=== PATIENT | male | born 1965 | race Caucasian/White ===

== ENCOUNTER → 2016-09-29 | Outpatient (CLI) | payer OTHER ==
[2016-09-29 12:17] LABS: BASO % 0.5 %; BASO ABS # 0.02 K/uL (0-0.2); COMPLETE YES; EOS % 1.7 %; HEMATOCRIT 45.3 % (42-52); IG% 0.2 %; LYMPH % 32.8 %; LYMPH ABS # 1.37 K/uL (1.2-3.4); MEAN CELL VOLUME 92.3 fL (80-100); MEAN CORPUSCULAR HEMOGLOBIN 31.8 pg (25-34); MEAN CORPUSCULAR HGB CONC 34.4 g/dl (32-36); MONO % 9.8 %; PLATELET COUNT 162 K/uL (130-400); RED BLOOD COUNT 4.91 M/uL (4.7-6.1); WHITE BLOOD COUNT 4.18 K/uL (4.8-10.8)
[2016-09-29 12:40] LABS: ALT/SGPT 34 U/L (12-78); BLOOD UREA NITROGEN 17 mg/dl (7-18); BUN/CREATININE RATIO 23.2 (10-20); CARBON DIOXIDE 27 mmol/L (21-32); CHLORIDE 105 mmol/L (98-107); CHOLESTEROL 166 mg/dl (0-200); CREATININE 0.75 mg/dl (0.60-1.40); GLUCOSE 106 mg/dl (70-99); POTASSIUM 4.8 mmol/L (3.5-5.1); SODIUM 138 mmol/L (136-145); TRIGLYCERIDES 66 mg/dl (0-150); VERY LOW DENSITY LIPOPROT CALC 13 mg/dl
[2016-09-29 12:49] LABS: ALB/GLOB RATIO 1.3 (0.9-2); ALKALINE PHOSPHATASE 88 U/L (45-117); AST/SGOT 15 U/L (15-37); CHOLESTEROL/HDL RATIO 2.9; HDL CHOLESTEROL 58 mg/dl; LDL CHOLESTEROL CALCULATED 95 mg/dl
== END | disposition home or self-care (01) ==
LOC: C.LABBFT 09:52
PROVIDERS: ATTEND Internal Medicine
DX: R42 Dizziness and giddiness (principal); R63.4 Abnormal weight loss; R56.9 Unspecified convulsions

== ENCOUNTER → 2016-09-30 | Outpatient (CLI) | payer OTHER ==
[2016-09-30 13:38] LABS: URINE APPEARANCE TURBID (CLEAR); URINE BILIRUBIN NEG (NEG); URINE COLOR YELLOW; URINE EPITHELIAL CELL AUTO 0-5 /lpf (0-5); URINE NITRITE NEG (NEG); URINE SPECIFIC GRAVITY 1.022 (1.000-1.030); UROBILINOGEN NEG (NEG); ZZUR CULT IF INDIC CLEAN CATCH NO
[2016-09-30 13:42] LABS: MANUAL MICROSCOPIC REQUIRED? NO; REVIEW REQ? NO
== END | disposition home or self-care (01) ==
LOC: C.LABSPEC 13:00
PROVIDERS: ATTEND Internal Medicine
DX: R42 Dizziness and giddiness (principal); R63.4 Abnormal weight loss; R56.9 Unspecified convulsions

== ENCOUNTER → 2016-10-14 | Outpatient (CLI) | payer OTHER | END | disposition home or self-care (01) | LOC: C.LABBFT 09:49 | PROVIDERS: ATTEND Internal Medicine | DX: R56.9 Unspecified convulsions (principal) ==

== ENCOUNTER → 2017-10-27 | Outpatient (CLI) | payer OTHER ==
[2017-10-27 18:02] LABS: BASO % 0.6 %; BASO ABS # 0.03 K/uL (0-0.2); EOS % 0.8 %; EOS ABS # 0.04 K/uL (0-0.5); HEMATOCRIT 44.9 % (42-52); HEMOGLOBIN 15.4 g/dL (14.0-18.0); IG# 0.01 K/uL (0.00-0.02); LYMPH % 29.7 %; LYMPH ABS # 1.43 K/uL (1.2-3.4); MEAN CELL VOLUME 95.1 fL (80-100); MEAN CORPUSCULAR HEMOGLOBIN 32.6 pg (25-34); MEAN CORPUSCULAR HGB CONC 34.3 g/dl (32-36); MEAN PLATELET VOLUME 10.6 fL (7.4-10.4); MONO % 7.9 %; MONO ABS # 0.38 K/uL (0.11-0.59); NEUT % 60.8 %; NEUT ABS # 2.93 K/uL (1.4-6.5); PLATELET COUNT 145 K/uL (130-400); RED CELL DISTRIBUTION WIDTH CV 12.7 % (11.5-14.5); RED CELL DISTRIBUTION WIDTH SD 44.1 fL (36.4-46.3); WHITE BLOOD COUNT 4.82 K/uL (4.8-10.8)
[2017-10-27 18:19] LABS: ALBUMIN 3.9 gm/dl (3.4-5.0); ALT/SGPT 27 U/L (12-78); AST/SGOT 11 U/L (15-37); BLOOD UREA NITROGEN 20 mg/dl (7-18); CALCIUM 8.8 mg/dl (8.5-10.1); CARBON DIOXIDE 27 mmol/L (21-32); GLUCOSE 82 mg/dl (70-99); POTASSIUM 4.3 mmol/L (3.5-5.1); SODIUM 137 mmol/L (136-145)
[2017-10-27 18:25] LABS: ALKALINE PHOSPHATASE 81 U/L (45-117); CHOLESTEROL 172 mg/dl (0-200); LDL CHOLESTEROL CALCULATED 96 mg/dl; TOTAL PROTEIN 7.4 gm/dl (6.4-8.2)
[2017-10-28 05:59] LABS: HEMOGLOBIN A1C 5.2 % (4.5-5.6)
[2017-10-29 12:57] LABS: ANA SCREEN TC 249X NEGATIVE (NEGATIVE)
== END | disposition home or self-care (01) ==
LOC: C.LABBFT 15:06
PROVIDERS: ATTEND Physician Assistant Medical
DX: Z00.00 Encounter for general adult medical examination without abnormal findings (principal); R73.9 Hyperglycemia, unspecified; M79.643 Pain in unspecified hand

== ENCOUNTER 2017-12-25 23:15 | Emergency (ER) | payer OTHER ==
[~2017-12-25] VITALS: Ht 177.8 cm; Wt 131.4 kg
[2017-12-25 23:15] VITALS: TEMP 37.7; Ht 177.8 cm; Wt 131.4 kg
[2017-12-25 23:50] LABS: BASO % 0.1 %; BASO ABS # 0.01 K/uL (0-0.2); EOS % 1.3 %; EOS ABS # 0.13 K/uL (0-0.5); HEMATOCRIT 44.5 % (42-52); HEMOGLOBIN 15.7 g/dL (14.0-18.0); IG# 0.02 K/uL (0.00-0.02); LYMPH % 13.3 %; MEAN CELL VOLUME 94.9 fL (80-100); MEAN CORPUSCULAR HEMOGLOBIN 33.5 pg (25-34); MEAN CORPUSCULAR HGB CONC 35.3 g/dl (32-36); MEAN PLATELET VOLUME 11.5 fL (7.4-10.4); MONO % 7.8 %; MONO ABS # 0.76 K/uL (0.11-0.59); NEUT % 77.3 %; NEUT ABS # 7.54 K/uL (1.4-6.5); PLATELET COUNT 149 K/uL (130-400); RED CELL DISTRIBUTION WIDTH SD 44.7 fL (36.4-46.3); WHITE BLOOD COUNT 9.76 K/uL (4.8-10.8)
[2017-12-26 00:02] LABS: PTT PATIENT 21.5 SECONDS (21.0-31.0)
--- NOTE | 2017-12-26 00:07 | EMERGENCY ROOM VISIT NOTE ---
History Report prepared by Marva: Cindy Noland Under the Supervision of: Dr. Mary Jo Esparza D.O. First contact with patient: 23:23 Chief Complaint: OTHER COMPLAINT Stated Complaint: SYNCOPE History of Present Illness The patient is a 52 year old male who presents to the Emergency Room with complaints of an episode of seizure occurring 2.5 hours ago. The patient states that he has a history of seizures, but hasn't had one in a while. He reports that he takes Dilantin and has not missed a dose. The patient states that he started having abdominal pain and nausea this evening so he took his nightly medication and was going to bed. He states that after lying down he felt like he had to use the restroom. He reports that when he did he had an episode of diarrhea. The patient's girlfriend reports that at this time she witnessed him have a seizure. She reports that she leaned him against the side of the wall so he didn't fall over. She states that she told her daughter at this time to call 911. She reports that after a little he started talking to her, but it wasn't coherent. She states that after some time he was able to talk to her and he stood up. The girlfriend reports that he started to shake again. She reports that she got him back down to where he was. She reports that he didn't start coming out of it until EMS arrived. She reports that he was very diaphoretic at this time. The patient states that he remembers EMS coming into the bathroom and [place] remembers getting put in the ambulance. He states that he remembers being in the ambulance. He notes that he has been under more stress today because his girlfriend's mother this morning and he has been worried about her. He states that he only ate 2 pieces of pizza today because he just didn't feel like eating. The patient denies current abdominal pain, current nausea, falling, hitting his head, and seeing a neurologist. Source of History: patient, spouse/significant other Onset: 2.5 hours ago Position: other (global) Quality: other (seizure) Timing: other (episode) Associated Symptoms: + diaphoresis, + diarrhea, No nausea, No abdominal pain Note: The patient complains of loss of appetite. Review of Systems See HPI for pertinent positives & negatives. A total of 10 systems reviewed and were otherwise negative. Past Medical & Surgical Medical Problems: (1) HTN (hypertension) (2) Hx of seizure disorder Family History Diabetes mellitus Gallbladder disease Social History Marital Status: in relationship Housing Status: lives with family Occupation Status: employed Current/Historical Medications Scheduled Lisinopril (Zestril), 10 MG PO DAILY Naproxen (Naprosyn), 500 MG PO BIDM [Phenytoin Ex 100MG], 400 MG PO QPM [Phenytoin Ex], 200 MG PO QAM Scheduled PRN Meloxicam (Mobic), 7.5 MG PO BID PRN for Pain Allergies Coded Allergies: Penicillins (Verified Allergy, Unknown, 11/01/09) Physical Exam Vital Signs Date Time Temp Pulse Resp B/P (MAP) Pulse Ox O2 Delivery O2 Flow Rate FiO2 12/26/17 02:19 76 18 109/69 94 12/26/17 01:00 70 18 107/66 94 Room Air 12/26/17 00:32 103 18 95/68 94 Room Air 12/26/17 00:32 95 Room Air 12/25/17 23:30 90 12/25/17 23:15 37.7 90 18 131/75 98 Room Air Physical Exam HEENT: Head - normocephalic and atraumatic Pupils are equal, round, and reactive to light. Extraocular eye muscles are intact, and sclera are anicteric. Nose - moist nasal mucosa without discharge. Mouth - moist buccal mucosa. Oropharynx is nonerythematous and there is no tonsillar exudate or edema noted. Neck: Supple; no JVD, nuchal rigidity, cervical lymphadenopathy. Heart: Regular rate and rhythm. There is a normal S1 and S2 with no murmurs, clicks, or gallops appreciated. Lungs: Clear to auscultation bilaterally with no wheezes, rales, or rhonchi. Abdomen: Soft, completely nontender, nondistended, with good bowel sounds. There are no palpable pulsatile masses or hepatosplenomegaly. There is no guarding, rigidity, or rebound noted. Extremities: No evidence of cyanosis, clubbing, or edema. There are easily palpable peripheral pulses. Skin: warm and dry with good turgor and no rashes. Medical Decision & Procedures ER Provider Diagnostic Interpretation: Radiology results as stated below per my review and the radiologist's interpretation: SINGLE VIEW CHEST CLINICAL HISTORY: Sepsis. FINDINGS: An AP, portable, upright chest radiograph is compared to study dated 01/05/2006. The examination is degraded by portable technique and apical lordotic positioning. The heart appears mildly enlarged. The pulmonary vasculature is noncongested. There is mild elevation of the right hemidiaphragm. No airspace consolidation or large pleural effusion is identified. No pneumothorax is seen. The bony thorax is grossly intact. IMPRESSION: Mild cardiac enlargement with no acute cardiopulmonary abnormality. Electronically signed by: Eliezer Alexander M.D. 12/26/2017 12:23 AM Dictated Date/Time: 12/26/2017 12:22 AM Laboratory Results 12/25/17 22:27 Red Blood Count 4.69, Mean Corpuscular Volume 94.9, Mean Corpuscular Hemoglobin 33.5, Mean Corpuscular Hemoglobin Concent 35.3, Mean Platelet Volume 11.5, Neutrophils (%) (Auto) 77.3, Lymphocytes (%) (Auto) 13.3, Monocytes (%) (Auto) 7.8, Eosinophils (%) (Auto) 1.3, Basophils (%) (Auto) 0.1, Neutrophils # (Auto) 7.54, Lymphocytes # (Auto) 1.30, Monocytes # (Auto) 0.76, Eosinophils # (Auto) 0.13, Basophils # (Auto) 0.01 12/25/17 22:27 Test 12/25/17 22:27 12/25/17 23:58 White Blood Count 9.76 K/uL (4.8-10.8) Red Blood Count 4.69 M/uL (4.7-6.1) Hemoglobin 15.7 g/dL (14.0-18.0) Hematocrit 44.5 % (42-52) Mean Corpuscular Volume 94.9 fL (80-100) Mean Corpuscular Hemoglobin 33.5 pg (25-34) Mean Corpuscular Hemoglobin Concent 35.3 g/dl (32-36) Platelet Count 149 K/uL (130-400) Mean Platelet Volume 11.5 fL (7.4-10.4) Neutrophils (%) (Auto) 77.3 % Lymphocytes (%) (Auto) 13.3 % Monocytes (%) (Auto) 7.8 % Eosinophils (%) (Auto) 1.3 % Basophils (%) (Auto) 0.1 % Neutrophils # (Auto) 7.54 K/uL (1.4-6.5) Lymphocytes # (Auto) 1.30 K/uL (1.2-3.4) Monocytes # (Auto) 0.76 K/uL (0.11-0.59) Eosinophils # (Auto) 0.13 K/uL (0-0.5) Basophils # (Auto) 0.01 K/uL (0-0.2) RDW Standard Deviation 44.7 fL (36.4-46.3) RDW Coefficient of Variation 13.0 % (11.5-14.5) Immature Granulocyte % (Auto) 0.2 % Immature Granulocyte # (Auto) 0.02 K/uL (0.00-0.02) Prothrombin Time 10.7 SECONDS (9.0-12.0) Prothromb Time International Ratio 1.0 (0.9-1.1) Activated Partial Thromboplast Time 21.5 SECONDS (21.0-31.0) Partial Thromboplastin Ratio 0.8 Anion Gap 10.0 mmol/L (3-11) Est Creatinine Clear Calc Drug Dose 98.4 ml/min Estimated GFR () 81.4 Estimated GFR (Non- 70.3 BUN/Creatinine Ratio 17.1 (10-20) Calcium Level 8.9 mg/dl (8.5-10.1) Total Bilirubin 0.7 mg/dl (0.2-1) Aspartate Amino Transf (AST/SGOT) 17 U/L (15-37) Alanine Aminotransferase (ALT/SGPT) 35 U/L (12-78) Alkaline Phosphatase 84 U/L (45-117) Total Protein 7.7 gm/dl (6.4-8.2) Albumin 4.2 gm/dl (3.4-5.0) Globulin 3.5 gm/dl (2.5-4.0) Albumin/Globulin Ratio 1.2 (0.9-2) Phenytoin (Dilantin) Level 4.8 mcg/mL (10-20) Bedside Lactic Acid Venous 2.07 mmol/L (0.90-1.70) Laboratory results per my review. Medications Administered Medications (Trade) Dose Ordered Sig/Farhat Route Start Time Stop Time Status Last Admin Dose Admin Lidocaine HCl (Viscous Lidocaine 2% Soln) 10 ml NOW STAT PO 12/26/17 00:12 12/26/17 00:13 DC 12/26/17 00:30 10 ML Al Hydroxide/Mg Hydroxide (Maalox Susp) 30 ml NOW STAT PO 12/26/17 00:12 12/26/17 00:13 DC 12/26/17 00:30 30 ML Sodium Chloride 1,000 ml @ 999 mls/hr Q1H1M STAT IV 12/26/17 00:35 12/26/17 01:35 DC 12/26/17 00:41 999 MLS/HR Phenytoin Sodium (Dilantin Er Cap) 400 mg NOW STAT PO 12/26/17 01:30 12/26/17 01:31 DC 12/26/17 01:36 400 MG Procedure 0012: Ordered Maalox Susp 30 ml PO, Lidocaine HCl 10 ml PO. 0035: Ordered NSS 1000 mlg @ 999 mls/hr IV. 0130: Ordered Dilantin Er Cap 400 mg PO. ECG Per My Interpretation Indication: syncope Rate (beats per minute): 83 Rhythm: normal sinus Findings: no acute ischemic change, no ectopy ED Course 2331: Past medical records reviewed. The patient was evaluated in room A3. A complete history and physical exam was performed. Seizure precautions were taken. Laboratory studies were drawn as above. 0012: The patient complained of epigastric pain and GERD-like symptoms. I ordered Maalox Susp 30 ml PO, Lidocaine HCl 10 ml PO. 0035: Ordered NSS 1000 mlg @ 999 mls/hr IV. 0117: Upon reevaluation, the patient is resting comfortably. I had a long discussion with him and his girlfriend, The patient may have missed some of his doses. He will get Dilantin and head home. I discussed findings and results with him. He verbalized agreement of the treatment plan. The patient was discharged home. Appropriate Department of Transportation form was completed. 0130: Ordered Dilantin Er Cap 400 mg PO. Medical Decision The patient is a 52 year old male who presents to the Emergency Room with complaints of an episode of seizure occurring 2.5 hours ago. Differential diagnoses include diarrheal illness, seizure, syncope. LABS: Dilantin 4.8 Lactic 2.0 BUN 20 Creatine 1.1 Glucose 149 Normal LFTs Normal coags Normal white count Stable H&H This is a 52-year-old male patient who presents to the emergency department after a tonic-clonic seizure at home. This was witnessed by his girlfriend. He did have some diarrhea prior to this episode. He did not fall or injure himself in any way. He was confused upon EMS arrival. The patient has a low Dilantin level at this time. I discussed this with the pharmacist and we decided to load the patient with 400 mg of Dilantin every 3 hours for a total of 3 doses. I have asked that the patient not be alone over the next 48 hours in case he were to have another seizure. He will need to return to the emergency department. Medication Reconcilliation Current Medication List: was personally reviewed by me Blood Pressure Screening Patient's blood pressure: Normal blood pressure Blood pressure disposition: Did not require urgent referral Impression Primary Impression: Seizure Additional Impression: Seizure secondary to subtherapeutic anticonvulsant medication Scribe Attestation The scribe's documentation has been prepared under my direction and personally reviewed by me in its entirety. I confirm that the note above accurately reflects all work, treatment, procedures, and medical decision making performed by me. Departure Information Dispostion Home / Self-Care Referrals Gokul Newberry M.D. (PCP) Forms HOME CARE DOCUMENTATION FORM, IMPORTANT VISIT INFORMATION, WORK / SCHOOL INSTRUCTIONS Patient Instructions My [facility] [place] [employer] Additional Instructions Take dilantin - 400mg at 5am and another 400mg at 8am. You may take your usual night-time dose on Wednesday. You Cannot drive until released by PCP. Please call back to the ER with Grounds Maintenance Supervisor' s license number - [phone] You must be with someone at all times over next 48 hours. Take plenty of clear liquids Problem Qualifiers
[2017-12-26 00:09] LABS: ALBUMIN 4.2 gm/dl (3.4-5.0); CALCIUM 8.9 mg/dl (8.5-10.1); CREATININE 1.17 mg/dl (0.60-1.40); POTASSIUM 3.9 mmol/L (3.5-5.1)
[2017-12-26 00:12] LABS: TOTAL PROTEIN 7.7 gm/dl (6.4-8.2)
[2017-12-26] MEDS ORDERED: ALUMINUM/MAGNESIUM SUSP 30 ML UDC PO STA (00:12)
[2017-12-26] MEDS ORDERED: LIDOCAINE HCL 2% VISC SOLN 20 ML UDC PO STA (00:12)
--- NOTE | 2017-12-26 00:24 | DIAGNOSTIC IMAGING REPORT ---
SINGLE VIEW CHEST CLINICAL HISTORY: Sepsis. FINDINGS: An AP, portable, upright chest radiograph is compared to study dated 01/05/2006. The examination is degraded by portable technique and apical lordotic positioning. The heart appears mildly enlarged. The pulmonary vasculature is noncongested. There is mild elevation of the right hemidiaphragm. No airspace consolidation or large pleural effusion is identified. No pneumothorax is seen. The bony thorax is grossly intact. IMPRESSION: Mild cardiac enlargement with no acute cardiopulmonary abnormality. Electronically signed by: Eliezer Alexander M.D. 12/26/2017 12:23 AM Dictated Date/Time: 12/26/2017 12:22 AM
[2017-12-26 00:32] VITALS: O2SAT 95
[2017-12-26] MEDS ORDERED: SODIUM CHLORIDE 0.9% 1000ML 1,000 ML IV STA (00:35)
[2017-12-26] MEDS ORDERED: PHENYTOIN EX PO ×2 (01:00→01:02)
[2017-12-26] MEDS ORDERED: MELO7.5T5 PO (01:03)
[2017-12-26] MEDS ORDERED: NAPR-1169 PO (01:05)
[2017-12-26] MEDS ORDERED: LISI-461 PO (01:06)
[2017-12-26] MEDS ORDERED: PHENYTOIN SODIUM ER 100 MG CAP PO STA (01:30)
[2017-12-26 02:19] VITALS: BP 109/69; PULSE 76; O2SAT 94
== END 2017-12-26 02:19 | disposition home or self-care (01) ==
LOC: EDBD 23:15 → C.EDA 23:16
DX: G40.909 Epilepsy, unspecified, not intractable, without status epilepticus (principal); I10 Essential (primary) hypertension; Z83.3 Family history of diabetes mellitus; Z88.0 Allergy status to penicillin

== ENCOUNTER → 2017-12-28 | Outpatient (CLI) | payer OTHER ==
[~2017-12-28] MED LIST: LISI-461 PO; MELO7.5T5 PO; NAPR-1169 PO; PHENYTOIN EX PO
== END | disposition home or self-care (01) ==
LOC: C.LABBFT 13:55
PROVIDERS: ATTEND Nurse Practitioner
DX: R56.9 Unspecified convulsions (principal); Z51.81 Encounter for therapeutic drug level monitoring; Z79.899 Other long term (current) drug therapy

== ENCOUNTER → 2018-01-14 | Outpatient (CLI) | payer OTHER ==
--- NOTE | 2018-01-14 16:36 | DIAGNOSTIC IMAGING REPORT ---
BRAIN W/O FOR SEIZURE CLINICAL HISTORY: R56.9 Convulsive [id number] seizures TECHNIQUE: Multiaxial MRI acquisition COMPARISON STUDY: None FINDINGS: Diffusion images are considered negative for an acute ischemic event. There are findings of moderate cerebral atrophy for age. There is minimal chronic small vessel change. Ventricular system is midline. Sella and parasellar regions are unremarkable. Internal auditory canals are symmetric. IMPRESSION: Moderate cerebral atrophy for age. Otherwise negative study. The above report was generated using voice recognition software. It may contain grammatical, syntax or spelling errors. Electronically signed by: Addy Dong M.D. 01/14/2018 4:35 PM Dictated Date/Time: 01/14/2018 4:31 PM
== END | disposition home or self-care (01) ==
LOC: C.MRI 15:13
PROVIDERS: ATTEND Nurse Practitioner
DX: R56.9 Unspecified convulsions (principal); R51 Headache

== ENCOUNTER → 2018-01-27 | Outpatient (CLI) | payer OTHER ==
--- NOTE | 2018-01-27 15:03 | EEG Procedure Note ---
EEG Procedure Note Date of Service January 27, 2018. Start / End Times Start Time: 2:15 PM End Time: 2:35 PM Referring Physician WENDY Lehman History This is a 52-year-old male with 2 recent seizures. EEG for further evaluation of seizure etiology. Home Medication List Scheduled Lisinopril (Zestril), 10 MG PO DAILY Naproxen (Naprosyn), 500 MG PO BIDM [Phenytoin Ex 100MG], 400 MG PO QPM [Phenytoin Ex], 200 MG PO QAM Scheduled PRN Meloxicam (Mobic), 7.5 MG PO BID PRN for Pain Description This is a 21 electrode EEG with a single channel dedicated to limited EKG. The electrodes were placed in accordance with the International 10-20 system. At the start of the recording the patient was in an awake state. Background was well organized and composed of symmetric mixed alpha and beta frequencies. There was a symmetric well-formed moderate amplitude 9 Hz posterior dominant rhythm that was reactive to eye opening and closure. Hyperventilation was not done. Intermittent photic stimulation at various frequencies produced no abnormalities. Sleep was indicated by vertex waves and symmetric sleep spindles. Interpretation This is a normal awake and asleep routine EEG. There was no electrographic seizures or epileptiform discharges. Clinical Correlation A normal EEG does not rule out epilepsy if there is a strong clinical suspicion.
== END | disposition home or self-care (01) ==
LOC: C.NEUR 14:01
PROVIDERS: ATTEND Physician Assistant
DX: G40.909 Epilepsy, unspecified, not intractable, without status epilepticus (principal)